=== PATIENT | female | born 2000 | race Hispanic/Latino ===

== ENCOUNTER 2022-07-08 12:06 | Inpatient (IN) | payer OTHER, SELFPAY ==
[~2022-07-08 12:06] MED LIST: Bupivacaine/Epinephrine 0.25% 30 ML VIAL ONE
[2022-07-08] MEDS ORDERED: Ondansetron PF 4 MG/2 ML Vial IVP PRN (12:12)
[2022-07-08] MEDS ORDERED: HYDROcodone/Acetaminophen 5/325 mg Tablet PO PRN (12:12)
[2022-07-08] MEDS ORDERED: Ibuprofen 800 MG TAB PO PRN (12:12)
[2022-07-08] MEDS ORDERED: Methylergonovine 0.2 MG/ML VIAL IM PRN (12:12)
[2022-07-08] MEDS ORDERED: hydrALAZINE 20 MG/ML VIAL SLOW IVP PRN (12:12)
[2022-07-08] MEDS ORDERED: Lidocaine 1% (PF) 30 ML VIAL SC PRN (12:12)
[2022-07-08] MEDS ORDERED: Misoprostol 200 MCG TAB PR PRN (12:12)
[2022-07-08] MEDS ORDERED: Diphenoxylate HCl/Atropine Tablet PO PRN ×2 (12:12)
[2022-07-08] MEDS ORDERED: Butorphanol Tartrate 1 MG/ML VIAL SLOW IVP PRN (12:12)
[2022-07-08] MEDS ORDERED: Promethazine HCl 25 MG/ML VIAL IM PRN (12:12)
[2022-07-08] MEDS ORDERED: Acetaminophen 500 MG TAB PO PRN (12:12)
[2022-07-08] MEDS ORDERED: Carboprost 250 MCG/ML AMP IM PRN (12:12)
[2022-07-08] MEDS ORDERED: NS w/ Oxytocin 30 units 500 ML IV SCH ×2 (12:15)
[2022-07-08 12:50] VITALS: BMI 38.9
[2022-07-08] MEDS: Misoprostol 100 MCG TAB VAG SCH (13:25)
[2022-07-08 14:02] LABS: SARS-CoV-2 NAA Rapid Test Not Detected (NotDetected)
[2022-07-08 14:22] LABS: Hemoglobin 13.4 g/dL (12.0-15.5); Mean Corpuscular HGB CONC 33.3 g/dL (32.0-36.0); Mean Corpuscular Hemoglobin 27.3 pg (27.0-33.0); Mean Platelet Volume 11.4 fl (7.4-10.4); Platelet Count 252 10x3/uL (150-450); RBC Distribution Width 14.7 % (11.5-14.5); White Blood Cell (WBC) Count 8.9 10x3/uL (3.5-10.5)
[2022-07-08 14:31] LABS: HBSAg Index 0.13 S/CO (0-0.99); Hep B Surf Ag Non-Reactive S/CO (NonReactive)
[2022-07-08 14:34] LABS: Syphilis Antibody Nonreactive (Nonreactive); Syphilis Antibody Index 0.03 S/CO (<1.00 Non-Reactive)
[2022-07-08 19:45] LABS: HIV (1/2) Antibody/Antigen Non-Reactive (NonReactive); HIV 1/2 INDEX 0.06 S/CO (<1.00)
[2022-07-09] MEDS ORDERED: Fentanyl 2 mcg/Bup 0.1% Cadd 100 ML ONE (12:01)
[2022-07-09] MEDS ORDERED: Acetaminophen 325 MG TAB PO PRN (12:52)
[2022-07-09] MEDS ORDERED: Lactated Ringer's 500 ML IV PRN (12:52)
[2022-07-09] MEDS ORDERED: Moisturizing Cream (Eucerin) 113 GM JAR TOP PRN (12:52)
[2022-07-09] MEDS ORDERED: Naloxone HCl 0.4 mg/ml Vial IVP PRN ×2 (12:52)
[2022-07-09] MEDS ORDERED: Ondansetron PF 4 MG/2 ML Vial IVP PRN (12:52)
[2022-07-09] MEDS ORDERED: diphenhydrAMINE 50 MG/ML VIAL IVP PRN (12:52)
[2022-07-09] MEDS ORDERED: ePHEDrine Sulfate 50 MG/10 ML VIAL SLOW IVP PRN (12:52)
[2022-07-09] MEDS ORDERED: Promethazine HCl 25 MG/ML VIAL IM PRN (12:52)
[2022-07-09] MEDS ORDERED: Fentanyl 2 mcg/Bupivacaine 0.1% Cassette 100 ML EPIDURAL SCH (13:00)
[2022-07-09] MEDS ORDERED: Communication Order-Pharmacy FS SCH (13:00)
[2022-07-09] MEDS: Misoprostol 100 MCG TAB VAG SCH ×3 (13:41→13:43)
[2022-07-09] MEDS: Lactated Ringer's 1,000 ML IV SCH (13:41)
[2022-07-10] MEDS ORDERED: Misoprostol 200 MCG TAB ONE (00:04)
[2022-07-10] MEDS ORDERED: Methylergonovine 0.2 MG/ML VIAL ONE (00:16)
[2022-07-10] MEDS ORDERED: Lanolin Ointment 7 GM TUBE TOP PRN (02:55)
[2022-07-10] MEDS ORDERED: HYDROcodone/Acetaminophen 5/325 mg Tablet PO PRN (02:55)
[2022-07-10] MEDS ORDERED: Boostrix 0.5 ML (Tdap) VIAL (>/=7 yrs of age) IM ONE (02:55)
[2022-07-10] MEDS ORDERED: Bisacodyl 10 MG SUPP PR PRN (02:55)
[2022-07-10] MEDS ORDERED: Preparation H Ointment 28 GM TUBE PR PRN (02:55)
[2022-07-10] MEDS ORDERED: Varicella virus, LIVE 0.5 ML VIAL SC ONE (02:55)
[2022-07-10] MEDS ORDERED: diphenhydrAMINE 25 MG CAP PO PRN (02:55)
[2022-07-10] MEDS ORDERED: Measles/Mumps/Rubella 10 MCG/0.5 ML VIAL SC ONE (02:55)
[2022-07-10] MEDS ORDERED: hydrALAZINE 20 MG/ML VIAL SLOW IVP PRN (02:55)
[2022-07-10] MEDS ORDERED: Ondansetron PF 4 MG/2 ML Vial IVP PRN (02:55)
[2022-07-10] MEDS ORDERED: Zolpidem Tartrate 5 MG TAB PO PRN (02:55)
[2022-07-10] MEDS ORDERED: Misoprostol 200 MCG TAB VAG PRN (02:55)
[2022-07-10] MEDS ORDERED: Benzocaine-Menthol 82.5 ML CAN TOP PRN (02:55)
[2022-07-10] MEDS ORDERED: Promethazine HCl 25 MG/ML VIAL IM PRN (02:55)
[2022-07-10] MEDS ORDERED: Methylergonovine 0.2 MG/ML VIAL IM PRN (02:55)
[2022-07-10] MEDS ORDERED: NS w/ Oxytocin 30 units 500 ML IV SCH (03:00)
[2022-07-10] MEDS ORDERED: Docusate 100 MG CAP PO SCH (03:15)
[2022-07-10] MEDS ORDERED: Witch Hazel-Glycerin 1 EACH JAR TOP PRN (03:32)
[2022-07-10] MEDS: Misoprostol 100 MCG TAB VAG SCH ×2 (03:32→03:33)
[2022-07-10] MEDS: Lactated Ringer's 1,000 ML IV SCH (03:33)
[2022-07-10] MEDS: CEFAZOLIN 2 GM in Sodium Chloride 0.9% 100 ML IVPB SCH ×3 (04:05→20:20)
[2022-07-10] MEDS: Ibuprofen 800 MG TAB PO SCH ×3 (04:06→21:20)
[2022-07-10 05:18] LABS: Hemoglobin 10.4 g/dL (12.0-15.5); Mean Corpuscular HGB CONC 33.4 g/dL (32.0-36.0); Mean Corpuscular Hemoglobin 27.2 pg (27.0-33.0); Mean Corpuscular Volume 81.4 fl (81.6-98.3); Mean Platelet Volume 11.6 fl (7.4-10.4); Platelet Count 246 10x3/uL (150-450); RBC Distribution Width 14.6 % (11.5-14.5); Red Blood Cell (RBC) Count 3.82 10x6/uL (3.90-5.03); White Blood Cell (WBC) Count 21.8 10x3/uL (3.5-10.5)
[2022-07-10] MEDS: Milk Of Magnesia 30 ML UDCUP PO PRN (12:33)
[2022-07-10] MEDS: Prenatal Vitamin 1 TAB PO SCH (12:34)
[2022-07-10] MEDS: Ferrous Sulfate 325 MG TAB PO SCH ×2 (12:34→19:23)
[2022-07-10] MEDS: Docusate 100 MG CAP PO SCH (21:21)
[2022-07-11] MEDS: CEFAZOLIN 2 GM in Sodium Chloride 0.9% 100 ML IVPB SCH (04:07)
[2022-07-11] MEDS: Ibuprofen 800 MG TAB PO SCH (04:07)
[2022-07-11 08:16] VITALS: BP 111/62; TEMP 97.6
[2022-07-11] MEDS: Prenatal Vitamin 1 TAB PO SCH (09:03)
[2022-07-11] MEDS: Docusate 100 MG CAP PO SCH (09:03)
[2022-07-11] MEDS: Milk Of Magnesia 30 ML UDCUP PO PRN (09:03)
[2022-07-11] MEDS: Ferrous Sulfate 325 MG TAB PO SCH (09:04)
== END 2022-07-11 13:10 | disposition home or self-care (01) | DRG 768 ==
LOC: CSHLD 12:06 → CSHPP 07-10 03:15
PROVIDERS: ADMIT Obstetrics & Gynecology; ATTEND Obstetrics & Gynecology
PROC: 10E0XZZ Delivery of Products of Conception, External Approach (ICD-10-PCS; principal; 2022-07-09)
PROC: 0DQR0ZZ Repair Anal Sphincter, Open Approach (ICD-10-PCS; 2022-07-09)
DX: O41.03X0 Oligohydramnios, third trimester, not applicable or unspecified (principal); Z37.0 Single live birth; O70.20 Third degree perineal laceration during delivery, unspecified; Z3A.38 38 weeks gestation of pregnancy; Z20.822 Contact with and (suspected) exposure to COVID-19
CPT/HCPCS: 36415; 51702; 85027; 86780; 86850; 86900; 86901; 87340; 87389; J2210; J2590; J3490; U0002